=== PATIENT | female | born 1980 | race Caucasian/White ===

== ENCOUNTER 2018-02-09 17:36 | Emergency (ER) | payer OTHER ==
[~2018-02-09] VITALS: Ht 167.6 cm; Wt 70.1 kg
[2018-02-09 18:54] LABS: HEMATOCRIT 37.1 % (36.0-46.0); MCH 33.1 PG (29.0-34.0); MCV 94.4 FL (83-99); PLATELET COUNT 222 K/uL (156-360); RBC DIS.WIDTH-CV 11.5 % (11.8-14.6); RBC DIS.WIDTH-SD 40.1 % (39-53); RED BLOOD COUNT 3.93 M/uL (3.80-5.20); WHITE BLOOD COUNT 8.8 K/uL (4.1-10.2)
[2018-02-09 19:07] LABS: CHLORIDE 103 mEq/L (99-109); POTASSIUM 3.9 mEq/L (3.7-5.4); SODIUM 137 mEq/L (136-147)
[2018-02-09 19:09] LABS: GLUCOSE 96 mg/dL (70-99)
[2018-02-09 19:13] LABS: CREATININE 0.8 mg/dL (0.6-1.3); GFR ESTIMATE (CALCULATED) > 59 mL/min/
[2018-02-09 19:14] LABS: TROP-I INTERPRETATION NEGATIVE; TROPONIN-I < 0.01 ng/mL (0.0-0.30); UREA NITROGEN (BUN) 5 mg/dL (9-23)
[2018-02-09 19:23] LABS: QUANTITATIVE HCG < 4.0 MIU/ML
[2018-02-09 20:19] LABS: D-DIMER ELISA < 150.00 ng/mLDDU (<230)
[2018-02-09] MEDS ORDERED: PERCOCET 5/31 TABLET PO (20:31)
[2018-02-09] MEDS ORDERED: OMEPRAZOLE40 M1 PO ×2 (20:31→20:49)
[2018-02-09] MEDS ORDERED: ZANTAC150 MG PO (20:49)
[2018-02-09] MEDS ORDERED: BENTYL10 MG PO (20:49)
[2018-02-09 21:15] VITALS: BP 153/102
== END 2018-02-09 21:01 | disposition home or self-care (01) ==
LOC: EME 17:36
PROVIDERS: Nurse Practitioner Family
DX: K21.9 Gastro-esophageal reflux disease without esophagitis (principal); R11.0 Nausea; F41.9 Anxiety disorder, unspecified; F17.200 Nicotine dependence, unspecified, uncomplicated
CPT/HCPCS: 71046; 80048; 84484; 84702; 85027; 85379; 99281; 99285